=== PATIENT | male | born 1975 | race African-American/Black ===

== ENCOUNTER 2022-05-12 00:19 | Emergency (ER) | payer MEDICAID ==
[2022-05-12] MEDS ORDERED: DOXY-326 MT (05:36)
[2022-05-12] MEDS ORDERED: CEPH500C2 MT (05:36)
[2022-05-12] MEDS ORDERED: IBUP-2029 MT (05:36)
== END 2022-05-12 01:14 | disposition left against medical advice (07) ==
LOC: ER 00:19
DX: Z53.21 Procedure and treatment not carried out due to patient leaving prior to being seen by health care provider (principal)

== ENCOUNTER 2022-05-12 02:27 | Emergency (ER) | payer MEDICAID ==
[~2022-05-12] VITALS: Ht 185.4 cm; Wt 92.7 kg
[2022-05-12] MEDS ORDERED: DOXY-326 MT (05:36)
[2022-05-12] MEDS ORDERED: CEPH500C2 MT (05:36)
[2022-05-12] MEDS ORDERED: IBUP-2029 MT (05:36)
[2022-05-12 05:54] VITALS: BP 112/78
== END 2022-05-12 05:50 | disposition home or self-care (01) ==
LOC: ER 02:27
DX: L03.313 Cellulitis of chest wall (principal)
CPT/HCPCS: 99283

== ENCOUNTER 2023-01-20 21:47 | Emergency (ER) | payer MEDICAID, OTHER ==
[~2023-01-20] VITALS: Ht 185.4 cm; Wt 97.0 kg
[~2023-01-20 21:47] MED LIST: CEPH500C2 MT; DOXY-456 MT; IBUP-2029 MT
[2023-01-20 21:51] VITALS: O2SAT 100
[2023-01-20] MEDS ORDERED: NALOXONE HCL 1 MG/ML 2ML VIAL IV ONE ×4 (22:45→23:00)
[2023-01-21 00:12] LABS: CLARITY URINE CLEAR (CLEAR); COLOR URINE DARK YELLOW (YELLOW); KETONES URINE NEGATIVE (NEGATIVE); LEUKOCYTE ESTERASE URINE 1+ (NEGATIVE); NITRITE URINE NEGATIVE (NEGATIVE); OCCULT BLOOD URINE NEGATIVE (NEGATIVE); PROTEIN URINE 1+ (NEGATIVE); SPECIFIC GRAVITY URINE 1.032 (1.005-1.030)
[2023-01-21 00:39] LABS: BASOPHILS % 0.6 % (0.0-2.0); EOSINOPHILS % 4.1 % (0.0-5.0); HEMATOCRIT. 41.9 % (42.0-52.0); HEMOGLOBIN. 14.1 g/dL (14.0-18.0); LYMPHOCYTES % 42.9 % (20.0-50.0); MEAN CORPUSCULAR HEMOGLOBIN 29.3 pg (28.0-32.0); MEAN CORPUSCULAR VOLUME 86.9 fL (80.0-94.0); MEAN PLATELET VOLUME 7.7 fl (7.4-10.4); MONOCYTES % 9.3 % (2.0-8.0); NEUTROPHILS % 43.1 % (40.0-76.0); PLATELET 348 x1000/uL (130-400); RED BLOOD CELL COUNT 4.81 mill/uL (4.7-6.1); RED CELL DISTRIBUTION WIDTH 13.7 % (11.6-14.6)
[2023-01-21 00:40] LABS: *AMPHETAMINES SCREEN URINE PRESUMTIVE POSITIVE (NEGATIVE); *BARBITURATES SCREEN URINE NEGATIVE (NEGATIVE); *BENZODIAZEPINES SCREEN URINE NEGATIVE (NEGATIVE); *COCAINE SCREEN URINE NEGATIVE (NEGATIVE); CANNABINOID URINE SCREEN PRESUMTIVE POSITIVE (NEGATIVE); METHADONE URINE SCREEN NEGATIVE (NEGATIVE); OPIATES URINE SCREEN NEGATIVE (NEGATIVE); PHENCYCLIDINE URINE SCREEN NEGATIVE (NEGATIVE)
[2023-01-21 00:51] LABS: CHLORIDE 106 mEq/L (98-107)
[2023-01-21 01:08] LABS: ETHANOL BLOOD < 10 mg/dL (-10)
[2023-01-21] MEDS ORDERED: ACETAMINOPHEN 325MG TABLET PO PRN ×2 (02:00)
[2023-01-21] MEDS ORDERED: LORAZEPAM 2MG/ML CPJ IV PRN (02:00)
[2023-01-21] MEDS ORDERED: NALOXONE HCL 0.4 MG/ML 1ML VIAL IV NR (02:00)
[2023-01-21] MEDS ORDERED: SODIUM CHLORIDE 0.9% 1,000 ML IV SCH (02:00)
[2023-01-21] MEDS ORDERED: IPRATROPIUM/ALBUTEROL 0.5-3(2.5)MG/3ML NEB HHN PRN (02:00)
[2023-01-21] MEDS: FAMOTIDINE 20MG/2ML VIAL IV SCH ×2 (02:00→09:00)
[2023-01-21] MEDS ORDERED: DOCUSATE SODIUM 100MG CAPSULE PO PRN (02:00)
[2023-01-21] MEDS ORDERED: ONDANSETRON HCL 4MG/2ML INJ IV PRN (02:00)
[2023-01-21] MEDS ORDERED: PIPERACILLIN/TAZ 3.375G PREMIX 50 ML IV NR (02:30)
[2023-01-21 07:53] LABS: CHLORIDE 109 mEq/L (98-107)
[2023-01-21 08:03] LABS: CREATINE KINASE 738 IU/L (39-308); CREATINE KINASE MB FRACTION 2.8 ng/mL (0.5-3.6)
[2023-01-21 08:10] LABS: HDL CHOLESTEROL 39 mg/dL (40-59); LDL CHOLESTEROL 98 mg/dL (5-100); T4 FREE 1.11 ng/dL (0.76-1.46)
[2023-01-21] MEDS ORDERED: ASPIRIN 81MG EC TABLET PO SCH (09:00)
[2023-01-21] MEDS ORDERED: ENOXAPARIN 40MG/0.4ML SYR SUBCUT SCH (09:00)
[2023-01-21] MEDS ORDERED: SODIUM CHLORIDE 0.9% 1000ML BAG (SEPSIS BOLUS) IV ONE (12:30)
[2023-01-21 13:57] VITALS: BP 128/85; PULSE 72; RESP 16; TEMP 98.7
[2023-01-21] MEDS ORDERED: PIPERACILLIN/TAZOBACTAM 3.375 G in DEXTROSE 5% WATER 50 ML IV SCH (14:00)
== END 2023-01-21 14:01 | disposition left against medical advice (07) ==
LOC: ER 21:47 → SUPCPDRO 01-21 00:52 → EDBEDREQTM 01-21 01:35 → EDBEDREQSVC 01-21 01:35 → ER 01-21 14:01 → CANBEDREQ 01-23 21:45
DX: T65.91XA Toxic effect of unspecified substance, accidental (unintentional), initial encounter (principal); I49.9 Cardiac arrhythmia, unspecified; R51.9 Headache, unspecified; Y92.9 Unspecified place or not applicable
CPT/HCPCS: 80305; 81003; 36415 ×2; 99291; 80061; 80076; 80053; 80048; 80320; 82550; 82553; 84439; 83605; 83690; 84443; 85025; 85379; 87086; 84484; 71045; 70450; 93005; J2310; J2543; Z7610; J7030; G0480